=== PATIENT | male | born 1975 | race Caucasian/White ===

== ENCOUNTER → 2017-11-09 | Outpatient (CLI) | payer BC ==
[2017-11-09 13:01] LABS: BASO # 0.1 10^3/uL (0.0-0.2); BASO % 1.4 % (0.0-1.0); EOS # 0.2 10^3/uL (0.0-0.50); HEMATOCRIT 46.9 % (42.0-52.0); HEMOGLOBIN 15.8 g/dl (13.5-17.5); IMMATURE GRANULOCYTE % 0.5 % (0-3.0); LYMPH # 2.5 10^3/uL (1.5-4.5); LYMPH % 38.3 % (24.0-44.0); MEAN CORPUSCULAR HEMOGLOBIN 28.8 pg (27.0-33.0); MEAN CORPUSCULAR HGB CONC 33.7 g/dl (32.0-36.5); MEAN CORPUSCULAR VOLUME 85.4 fl (80.0-96.0); MONO # 0.8 10^3/uL (0.0-0.8); NEUTROPHILS # 2.9 10^3/uL (1.8-7.7); NEUTROPHILS % 44.8 % (36.0-66.0); PLATELET COUNT, AUTOMATED 162 10^3/uL (150-450); RED BLOOD COUNT 5.49 10^6/uL (4.30-6.10); RED CELL DISTRIBUTION WIDTH 13.1 % (11.5-14.5); WHITE BLOOD COUNT 6.4 10^3/uL (4.0-10.0)
[2017-11-09 13:36] LABS: ALBUMIN 4.2 GM/DL (3.2-5.2); ALBUMIN/GLOBULIN RATIO 1.31 (1.00-1.93); ALKALINE PHOSPHATASE 49 U/L (45-117); ALT/SGPT 51 U/L (12-78); ANION GAP 6 MEQ/L (8-16); AST/SGOT 26 U/L (7-37); BILIRUBIN,TOTAL 0.7 MG/DL (0.2-1.0); BLOOD UREA NITROGEN 20 MG/DL (7-18); CALCIUM LEVEL 9.3 MG/DL (8.5-10.1); CARBON DIOXIDE LEVEL 28 MEQ/L (21-32); CHLORIDE LEVEL 106 MEQ/L (98-107); CHOLESTEROL LEVEL 183 MG/DL (<200); CHOLESTEROL RISK RATIO 4.066 (<5); CREATININE FOR GFR 1.12 MG/DL (0.70-1.30); GLOMERULAR FILTRATION RATE > 60.0 (>60); GLUCOSE, FASTING 98 MG/DL (70-100); HDL CHOLESTEROL 45 MG/DL (>40); LDL CHOLESTEROL 116.6 MG/DL (<100); NON-HDL-C 138 MG/DL; POTASSIUM SERUM 4.5 MEQ/L (3.5-5.1); SODIUM LEVEL 140 MEQ/L (136-145); TOTAL PROTEIN 7.4 GM/DL (6.4-8.2); TRIGLYCERIDES LEVEL 107 MG/DL (<150)
== END ==
LOC: M WUC 09:04
DX: I10 Essential (primary) hypertension (principal)
CPT/HCPCS: 80053

== ENCOUNTER → 2018-09-10 | Outpatient (CLI) | payer BC ==
[2018-09-10 17:59] LABS: MAU/CREAT RATIO 3.5 MCG/MG (0.0-30.0)
[2018-09-10 18:06] LABS: ALT/SGPT 39 U/L (12-78); BILIRUBIN,TOTAL 0.5 MG/DL (0.2-1.0); BLOOD UREA NITROGEN 16 MG/DL (7-18); CALCIUM LEVEL 8.9 MG/DL (8.5-10.1); CARBON DIOXIDE LEVEL 27 MEQ/L (21-32); CHLORIDE LEVEL 104 MEQ/L (98-107); CHOLESTEROL LEVEL 194 MG/DL (<200); CREATININE FOR GFR 1.15 MG/DL (0.70-1.30); GLOMERULAR FILTRATION RATE > 60.0 (>60); GLUCOSE, FASTING 88 MG/DL (70-100); HDL CHOLESTEROL 53 MG/DL (>40); LDL CHOLESTEROL 118 MG/DL (<100); NON-HDL-C 141 MG/DL; POTASSIUM SERUM 4.7 MEQ/L (3.5-5.1); SODIUM LEVEL 139 MEQ/L (136-145); THYROID STIMULATING HORMONE 0.764 uIU/ML (0.358-3.740); TOTAL PROTEIN 7.2 GM/DL (6.4-8.2); TRIGLYCERIDES LEVEL 114 MG/DL (<150)
== END ==
LOC: M WUC 11:05
PROVIDERS: ATTEND Nurse Practitioner Family
DX: Z00.00 Encounter for general adult medical examination without abnormal findings (principal); I10 Essential (primary) hypertension; Z13.220 Encounter for screening for lipoid disorders

== ENCOUNTER → 2019-03-22 | Outpatient (REF) | payer BC ==
[2019-03-22 10:23] LABS: BLOOD UREA NITROGEN 15 MG/DL (7-18); CALCIUM LEVEL 9.7 MG/DL (8.5-10.1); CARBON DIOXIDE LEVEL 28 MEQ/L (21-32); CHLORIDE LEVEL 105 MEQ/L (98-107); CREATININE FOR GFR 1.12 MG/DL (0.70-1.30); GLOMERULAR FILTRATION RATE > 60.0 (>60); GLUCOSE, FASTING 132 MG/DL (70-100); POTASSIUM SERUM 4.2 MEQ/L (3.5-5.1); SODIUM LEVEL 138 MEQ/L (136-145)
== END ==
LOC: M SFHCPLAZ 07:51
PROVIDERS: ATTEND Nurse Practitioner Family
DX: J30.9 Allergic rhinitis, unspecified (principal)

== ENCOUNTER 2021-05-31 00:21 | Emergency (ER) | payer BC ==
[~2021-05-31] VITALS: Ht 172.7 cm; Wt 85.0 kg
[2021-05-31 00:21] VITALS: BP 131/64
--- OUTSIDE RECORDS SUMMARY | 2021-05-31 00:26 | CCD ---
Author Author [facility] Organization [facility] Address Unknown Phone Unavailable Support Name Relationship Address Phone [employer] [place] [address] STATURE Next Of Kin [address] [place] [address] XIOMARA DE LA FUENTE Next Of Kin [address] [place] [address] XIOMARA DE LA FUENTE ECON Unknown Unavailable Re-disclosure Warning The records that you are about to access may contain information from federally-assisted alcohol or drug abuse programs. If such information is present, then the following federally mandated warning applies: This information has been disclosed to you from records protected by federal confidentiality rules (42 CFR part 2). The federal rules prohibit you from making any further disclosure of this information unless further disclosure is expressly permitted by the written consent of the person to whom it pertains or as otherwise permitted by 42 CFR part 2. A general authorization for the release of medical or other information is NOT sufficient for this purpose. The Federal rules restrict any use of the information to criminally investigate or prosecute any alcohol or drug abuse patient.The records that you are about to access may contain highly sensitive health information, the redisclosure of which is protected by Article 27-F of the [facility] Public Health law. If you continue you may have access to information: Regarding HIV / AIDS; Provided by facilities licensed or operated by the [facility] Office of Mental Health; or Provided by the [facility] Office for People With Developmental Disabilities. If such information is present, then the following [facility] mandated warning applies: This information has been disclosed to you from confidential records which are protected by state law. State law prohibits you from making any further disclosure of this information without the specific written consent of the person to whom it pertains, or as otherwise permitted by law. Any unauthorized further disclosure in violation of state law may result in a fine or [place] [facility] sentence or both. A general authorization for the release of medical or other information is NOT sufficient authorization for further disc losure. Family History Family Member Name Family Member Gender Family Member Status Date o f Status Description Data Source(s) Unknown Unknown Problem [facility] ([facility]) Unknown Unknown Problem [facility] ([facility]) pgm Immunizations Vaccine Date Status Description Data Source(s) COVID-19 VACCINE Moderna 11/24/2020 12:00:00 AM EDT completed [place] Vaccine Series Complete: YESThis Data wa s Submitted to [facility]. COVID-19 VACCINE Moderna 10/25/2020 12:00:00 AM EDT completed [place] Vaccine Series Complete: NOThis Data was Submitted to [facility] [employer]. Medications No Information Insurance Providers Payer name Policy type / Coverage type Policy ID Covered alliance party ID Covered alliance party's relationship to viramontes Policy [place] Plan Information [employer] [place] P[place]/307 [id number] SP [id number] [employer] [place]/307 [id number] SP [id number] ANSI-Not a Secondary Insurance [id number] BCBS/[employer] Commercial [id number] Self [id number] BCBS/Blue Card Commercial [id number] Self [employer] [place] PPO 302/307 [id number] SP [id number] ANSI-Not a Secondary Insurance [id number] Problems, Conditions, and Diagnoses No Information Surgeries/Procedures No Information Results No Information Social History No Information
--- OUTSIDE RECORDS SUMMARY | 2021-05-31 00:40 | CCD ---
Author Author [facility] Organization [facility] Address Unknown Phone Unavailable Support Name Relationship Address Phone [employer] Next [place] [address] STATURE Next Of Kin [address] [place] [address] XIOMARA DE LA FUENTE Next Of Kin [address] [place] [address] XIOMARA DE LA FUENTE ECON Unknown Unavailable [...] is protected by Article 27-F of the [facility] Public Health law. If you continue you may have access to information: Regarding HIV / AIDS; Provided by facilities licensed or operated by the [facility] Office of Mental Health; or Provided by the [facility] Office for People With Developmental Disabilities. If such information is present, then the following [facility] mandated warning applies: This information has been [...] law may result in a fine or correction sentence or both. A general authorization for [...] Complete: YESThis Data wa s Submitted to [facility] [employer]. COVID-19 VACCINE Moderna 10/25/2020 12:00:00 AM EDT completed [place] Vaccine Series Complete: NOThis Data was Submitted to [facility] [employer] [employer]. Medications No Information Insurance Providers Payer name Policy type / Coverage type Policy ID Covered constitution party ID Covered constitution party's relationship to viramontes Policy [place] Plan Information [employer] [place] P[place] 302/307 [id number] SP [id number] [employer] [place] PPO 302/307 [id number] SP [id number] ANSI-Not a Secondary Insurance [id number] [employer] Commercial [id number] Self [id number] BCBS/Blue Card Commercial [id number] Self [employer] [place] P[place] 302/307 [id number] SP [id number] ANSI-Not a Secondary Insurance [id number] Problems, Conditions, and Diagnoses No Information Surgeries/Procedures No Information Results No Information Social History No Information
[2021-06-01] MEDS ORDERED: LISI40TA4 PO (14:01)
[2021-06-01] MEDS ORDERED: VITMTA PO (15:41)
[2021-06-01] MEDS ORDERED: ADVI200C18 PO (15:41)
== END 2021-05-31 00:24 | disposition left against medical advice (07) ==
LOC: M ED 00:21
DX: Z53.21 Procedure and treatment not carried out due to patient leaving prior to being seen by health care provider (principal)

== ENCOUNTER 2021-06-01 13:49 | Inpatient (IN) | payer BC ==
[~2021-06-01] VITALS: Ht 175.3 cm; Wt 86.2 kg
--- OUTSIDE RECORDS SUMMARY | 2021-06-01 13:55 | CCD ---
Author Author [facility] Organization [facility] Address Unknown Phone Unavailable Care Team Providers Care Rehab Services Aide Name Role Phone FEDE, Kelley STANFORD PA Unavailable Unavailable LETTIERE, A HIEN PA Unavailable Unavailable LETTIERE, A HIEN PA Unavailable Unavailable LETTIERE, A HIEN PA Unavailable Unavailable LETTIERE, A HIEN PA Unavailable Unavailable LETTIERE, A HIEN PA Unavailable Unavailable LETTIERE, A HIEN PA Unavailable Unavailable LETTIERE, A HIEN PA Unavailable Unavailable LETTIERE, A HIEN PA Unavailable Unavailable LETTIERE, A HIEN PA Unavailable Unavailable LETTIERE, A HIEN PA Unavailable Unavailable LETTIERE, A HIEN PA Unavailable Unavailable LETTIERE, A HIEN PA Unavailable Unavailable LETTIERE, A HIEN PA Unavailable Unavailable LETTIERE, A HIEN PA Unavailable Unavailable LETTIERE, A HIEN PA Unavailable Unavailable LETTIERE, A HIEN PA Unavailable Unavailable LETTIERE, A HIEN PA Unavailable Unavailable LETTIERE, A HIEN PA Unavailable Unavailable LETTIERE, A HIEN PA Unavailable Unavailable LETTIERE, A HIEN PA Unavailable Unavailable LETTIERE, A HIEN PA Unavailable Unavailable LETTIERE, A HIEN PA Unavailable Unavailable LETTIERE, A HIEN PA Unavailable Unavailable LETTIERE, A HIEN PA Unavailable Unavailable LETTIERE, A HIEN PA Unavailable Unavailable LETTIERE, A HIEN PA Unavailable Unavailable LETTIERE, A HIEN PA Unavailable Unavailable LETTIERE, A HIEN PA Unavailable Unavailable LETTIERE, A HIEN PA Unavailable Unavailable LETTIERE, A HIEN PA Unavailable Unavailable Re-disclosure Warning The records that you [...] is protected by Article 27-F of the [facility] Public Health law. If you continue you may have access to information: Regarding HIV / AIDS; Provided by facilities licensed or operated by the [facility] Office of Mental Health; or Provided by the [facility] Office for People With Developmental Disabilities. If such information is present, then the following [facility] mandated warning applies: This information has been [...] law may result in a fine or long term sentence or both. A general authorization for the release of medical or other information is NOT sufficient authorization for further disc losure. Family History Family Member Name Family Member Gender Family Member Status Date o f Status Description Data Source(s) Unknown Unknown Problem [facility] ([facility]) Unknown Unknown Problem [facility] ([facility]) pgm Encounters Encounter Providers Location Date Indications Data Source(s ) Outpatient Attender: HIEN toussaint 06/01/2021 08:15:00 AM EDT [facility] ([facility]) Immunizations Vaccine Date Status Description Data Source(s) COVID-19 VACCINE Moderna 11/24/2020 12:00:00 AM EDT completed [place] Vaccine Series Complete: YESThis Data wa s Submitted to [facility] [employer]. COVID-19 VACCINE Moderna 10/25/2020 12:00:00 AM EDT completed [place] Vaccine Series Complete: NOThis Data was Submitted to [facility] [employer]. Medications No Information Insurance Providers Payer name Policy type / Coverage type Policy ID Covered green party ID Covered green party's relationship to viramontes Policy [place] Plan Information [employer] [place] P[place] 302/307 [id number] SP [id number] [employer] [place] 302/307 [id number] SP [id number] ANSI-Not a Secondary Insurance [id number] ANSI-Not a Secondary Insurance [id number] BC[employer] Commercial [id number] Self [id number] BCBS/Blue Card Commercial [id number] Self [employer] [place] P[place] 302/307 [id number] SP [id number] [employer] [place] O 302/307 [id number] SP [id number] Problems, Conditions, and Diagnoses No Information Surgeries/Procedures Procedure Description Date Indications Data Source(s) OFFICE OUTPATIENT NEW 30 MINUTES 06/01/2021 12:00:00 A M EDT [facility] ([facility]) Results ID Date Data Source [id number] 06/01/2021 09:56:00 AM EDT [facility] ([facility]) Name Value Range Interpretation Code Description Data Zora rce(s) Supporting Document(s) Bacteria identified in Urine by Culture Laboratory test result [facility] ([facility]) Procedure Social History Code Duration Value Status Description Data Source(s ) Smoking 06/01/2021 12:00:00 AM EDT Patient is a former smoker completed Patient is a former smoker [facility] ([facility]) Vital Signs ID Date Data Source UNK Name Value Range Interpretation Code Description Data Source(s) Heart rate 102 /min 102 /min [facility] ([facility]) Body temperature 98.7 [degF] 98.7 [degF] [facility] ([facility], [facility]) Respiratory rate 14 /min 14 /min [facility] ( [facility], [facility]) Oxygen saturation in Arterial blood by Pulse oximetry 98 % 98 % [facility] ([facility], [facility]) Body weight 187.00 [lb_av] 187.00 [lb_av] [facility] ([facility], [facility]) Systolic blood pressure 122 mm[Hg] 122 mm[Hg] [facility] ([facility], [facility]) Diastolic blood pressure 79 mm[Hg] 79 mm[Hg] [facility] ([facility]) Body height 69 [in_i] 69 [in_i] [facility] ([facility]) 5'9" Body mass index (BMI) [Ratio] 27.6 kg/m2 27.6 k g/m2 [facility] ([facility])
[2021-06-01] MEDS ORDERED: LISI40TA4 PO (14:01)
[2021-06-01] MEDS ORDERED: PIPERACILLIN/TAZOBACTAM SOD 3.375 GM in D5W MINI-BAG PLUS 50 ML IV ONE (14:35)
[2021-06-01] MEDS ORDERED: NS 1,000 ML IV ONE (14:35)
[2021-06-01] MEDS ORDERED: ACETAMINOPHEN 500 MG TAB PO ONE (15:05)
[2021-06-01] MEDS ORDERED: MORPHINE 2 MG/ML 1ML VIAL (J2270) IV ONE (15:05)
[2021-06-01 15:28] LABS: RSV AMPLIFICATION NEGATIVE (NEGATIVE)
[2021-06-01] MEDS ORDERED: VITMTA PO (15:41)
[2021-06-01] MEDS ORDERED: ADVI200C18 PO (15:41)
[2021-06-01] MEDS ORDERED: HOME MED LIST COMPLETE! XX SCH (15:45)
--- OUTSIDE RECORDS SUMMARY | 2021-06-01 15:52 | CCD ---
Author Author [facility] Organization [facility] Address Unknown Phone Unavailable Care Team Providers Care Creative Services Specialist Name Role Phone FEDE, Kelley CABRALES Unavailable Unavailable LETTIERE, Kelley STANFORD PA Unavailable Unavailable LETTIERE, Kelley STANFORD PA Unavailable Unavailable LETTIERE, Kelley STANFORD PA Unavailable Unavailable LETTIERE, Kelley STANFORD PA Unavailable Unavailable LETTIERE, Kelley STANFORD PA Unavailable Unavailable LETTIERE, Kelley STANFORD PA Unavailable Unavailable LETTIERE, Kelley STANFORD PA Unavailable Unavailable LETTIERE, Kelley STANFORD PA Unavailable Unavailable LETTIERE, Kelley STANFORD PA Unavailable Unavailable LETTIERE, Kelley STANFORD PA Unavailable Unavailable LETTIERE, A HIEN PA Unavailable Unavailable LETTIERE, A HIEN PA Unavailable Unavailable LETTIERE, Kelley STANFORD PA Unavailable Unavailable LETTIERE, Kelley STANFORD PA Unavailable Unavailable LETTIERE, A HEIN PA Unavailable Unavailable LETTIERE, A HIEN PA [...] is protected by Article 27-F of the [facility] Public Health law. If you continue you may have access to information: Regarding HIV / AIDS; Provided by facilities licensed or operated by the [facility] Office of Mental Health; or Provided by the [facility] Office for People With Developmental Disabilities. If such information is present, then the following [facility] mandated warning applies: This information has [...] law may result in a fine or fdc sentence or both. A general authorization for the release of medical or other information is NOT sufficient authorization for further disc losure. Family History Family Member Name Family Member Gender Family Member Status Date o f Status Description Data Source(s) Unknown Unknown Problem [facility] ([facility]) Unknown Unknown Problem [facility] pgm Encounters Encounter Providers Location Date Indications Data Source(s ) Outpatient Attender: HIEN toussaint 06/01/2021 08:15:00 AM EDT [facility] ([facility] [place] [address] [address] 05/31/2021 12:00:00 AM EDT eCW1 ([facility]) Unknown [address] [address] 05/27/2021 12:00:00 AM EDT eCW1 ([facility]) Immunizations Vaccine Date Status Description Data Source(s) COVID-19 VACCINE Moderna 11/24/2020 12:00:00 AM EDT completed NYSIIS Vaccine Series Complete: YESThis Data wa s Submitted to [facility] Via [employer]. COVID-19 VACCINE Moderna 10/25/2020 12:00:00 AM EDT completed [facility]SIIS Vaccine Series Complete: NOThis Data was Submitted to [facility] Via [employer]. Medications No Information Insurance Providers Payer name Policy type / Coverage type Policy ID Covered democrat ID Covered democrat's relationship to viramontes Policy [place] Plan Information [employer] [place]/307 [id number] SP [id number] [place]/307 [id number] SP [id number] ANSI-Not a Secondary Insurance [id number] ANSI-Not a Secondary Insurance [id number] BCBS/[employer] Commercial [id number] Self [id number] BCBS/Blue Card Commercial [id number] Self [place] P[place] 302/307 [id number] SP [id number] [employer] [place] P[place] 302/307 [id number] SP [id number] Problems, Conditions, and Diagnoses No Information Surgeries/Procedures Procedure Description Date Indications Data Source(s) OFFICE OUTPATIENT NEW 30 MINUTES 06/01/2021 12:00:00 A M ED[facility], [facility]) Results ID Date Data Source [id number] 06/01/2021 09:56:00 AM EDT MED[facility] ([facility]) Name Value Range Interpretation Code Description Data Zora rce(s) Supporting Document(s) Bacteria identified in Urine by Culture Laboratory test result [facility] ([facility]) ID Date Data Source [id number] 06/01/2021 09:40:00 AM EDT [facility] ([facility]) Name Value Range Interpretation Code Description Data Zora rce(s) Supporting Document(s) Platelets [#/volume] in Blood by Estimate Laboratory test result MED[facility] ([facility]) see progress note: Patient sent over to ED for further evaluation. ID Date Data Source [id number] 06/01/2021 09:40:00 AM EDT [facility] ([facility]) Name Value Range Interpretation Code Description Data Zora rce(s) Supporting Document(s) Bands 2 % [facility] ([facility]) see progress note: Patient sent over to ED for further evaluation. Neutrophils 85 % 28-66 [facility] ([facility]) see progress note: Patient sent over to ED for further evaluation. Lymphocytes 8 % 16-44 [facility] ([facility]) see progress note: Patient sent over to ED for further evaluation. Monocytes 5 % 0-5 [facility] ([facility]) see progress note: Patient sent over to ED for further evaluation. RBC Morphology Laboratory test result MED[facility] ([facility]) see progress note: Patient sent over to ED for further evaluation. ID Date Data Source [id number] 06/01/2021 09:40:00 AM EDT MED[facility] ([facility]) Name Value Range Interpretation Code Description Data Zora rce(s) Supporting Document(s) Lipoprotein lipase [Enzymatic activity/volume] in Serum or Plasm a 76 U/L 73-393 [facility] ([facility]) see progress note: Patient sent over to ED for further evaluation. Amylase [Enzymatic activity/volume] in Serum or Plasma 36 U/L 25- 115 [facility] ([facility]) see progress note: Patient sent over to ED for further evaluation. ID Date Data Source [id number] 06/01/2021 09:40:00 AM EDT MED[facility] ([facility]) Name Value Range Interpretation Code Description Data Zora rce(s) Supporting Document(s) Glucose, Fasting 114 mg/dL 70-100 [facility] ([facility]) see progress note: Patient sent over to ED for further evaluation. Glomerular Filtration Rate Laboratory test result MED[facility] ([facility]) see progress note: Patient sent over to ED for further evaluation. Creatinine For GFR 1.02 mg/dL 0.70-1.30 [facility] ([facility]) see progress note: Patient sent over to ED for further evaluation. Blood Urea Nitrogen 12 mg/dL 7-18 [facility] ([facility]) see progress note: Patient sent over to ED for further evaluation. Potassium Serum 3.7 meq/L 3.5-5.1 MED[facility] ([facility]) see progress note: Patient sent over to ED for further evaluation. Chloride Level 99 meq/L 98-107 [facility] ([facility]) see progress note: Patient sent over to ED for further evaluation. Sodium Level 133 meq/L 136-145 [facility] ([facility]) see progress note: Patient sent over to ED for further evaluation. Anion Gap 5 meq/L 8-16 [facility] ([facility]) see progress note: Patient sent over to ED for further evaluation. Carbon Dioxide Level 29 meq/L 21-32 [facility] ([facility]) see progress note: Patient sent over to ED for further evaluation. Alt/SGPT 100 U/L 12-78 [facility] ([facility]) see progress note: Patient sent over to ED for further evaluation. Ast/Sgot 41 U/L 7-37 [facility] ([facility]) see progress note: Patient sent over to ED for further evaluation. Calcium Level 8.8 mg/dL 8.5-10.1 [facility] ([facility]) see progress note: Patient sent over to ED for further evaluation. Alkaline Phosphatase 134 U/L 45-117 MED[facility] ([facility]) see progress note: Patient sent over to ED for further evaluation. Bilirubin,Total 0.7 mg/dL 0.2-1.0 [facility] ([facility]) see progress note: Patient sent over to ED for further evaluation. Total Protein 7.0 GM/DL 6.4-8.2 [facility] ([facility]) see progress note: Patient sent over to ED for further evaluation. Albumin/Globulin Ratio 0.7 [facility] ([facility]) see progress note: Patient sent over to ED for further evaluation. Albumin 2.8 GM/DL 3.2-5.2 [facility] ([facility]) see progress note: Patient sent over to ED for further evaluation. ID Date Data Source [id number] 06/01/2021 09:40:00 AM EDT MED[facility] ([facility]) Name Value Range Interpretation Code Description Data Zora rce(s) Supporting Document(s) White Blood Count 24.9 10 4.0-10.0 MED[facility] ([facility]) see progress note: Patient sent over to ED for further evaluation. Red Blood Count 4.62 10 4.30-6.10 [facility] ([facility]) see progress note: Patient sent over to ED for further evaluation. Hemoglobin 13.1 g/dL 13.5-17.5 MED[facility] ([facility]) see progress note: Patient sent over to ED for further evaluation. Mean Corpuscular Volume 86.4 fl 80.0-96.0 M EDENT ([facility]) see progress note: Patient sent over to ED for further evaluation. Mean Corpuscular Hemoglobin 28.4 pg 27.0-33.0 [facility] ([facility]) see progress note: Patient sent over to ED for further evaluation. Hematocrit 39.9 % 42.0-52.0 [facility] ([facility]) see progress note: Patient sent over to ED for further evaluation. Mean Corpuscular HGB Conc 32.8 g/dL 32.0-36.5 [facility] ([facility]) see progress note: Patient sent over to ED for further evaluation. Red Cell Distribution Width 13.8 % 11.5-14.5 [facility] ([facility]) see progress note: Patient sent over to ED for further evaluation. Platelet Count, Automated 310 10 150-450 [facility] see progress note: Patient sent over to ED for further evaluation. Nucleated Red Blood Cell % 0.0 % 0-0 [facility] ([facility]) see progress note: Patient sent over to ED for further evaluation. Procedure Social History Code Duration Value Status Description Data Source(s ) Smoking 06/01/2021 12:00:00 AM EDT Patient is a former smoker completed Patient is a former smoker [facility] ([facility]) Vital Signs ID Date Data Source UNK Name Value Range Interpretation Code Description Data Source(s) Respiratory rate 14 /min 14 /min [facility] ( [facility]) Oxygen saturation in Arterial blood by Pulse oximetry 98 % 98 % [facility] ([facility]) Body height 69 [in_i] 69 [in_i] [facility] ([facility]) 5'9" Body mass index (BMI) [Ratio] 27.6 kg/m2 27.6 k g/m2 [facility] ([facility]) Systolic blood pressure 122 mm[Hg] 122 mm[Hg] [facility] Diastolic blood pressure 79 mm[Hg] 79 mm[Hg] [facility] ([facility]) Heart rate 102 /min 102 /min [facility] ([facility]) Body temperature 98.7 [degF] 98.7 [degF] [facility] ([facility]) Body weight 187.00 [lb_av] 187.00 [lb_av] MEDEN T ([facility])
[2021-06-01] MEDS ORDERED: MORPHINE 2 MG/ML 1ML VIAL (J2270) IV PRN ×2 (19:30→21:25)
[2021-06-01] MEDS ORDERED: PERCOCET 5MG/325MG TAB PO PRN (21:25)
[2021-06-01] MEDS ORDERED: ONDANSETRON 4MG/2ML VIAL IV PRN (21:25)
[2021-06-01] MEDS ORDERED: METOCLOPRAMIDE INJ 10MG/2ML VIAL (J2765 PER 1) IV PRN (21:25)
--- OUTSIDE RECORDS SUMMARY | 2021-06-01 21:46 | CCD ---
Author Author [facility] Organization [facility] Address Unknown Phone Unavailable Care Team Providers Care Poker Prop Player Name Role Phone FEDE, Kelley CABRALES Unavailable [...] A HIEN PA Unavailable Unavailable LETTIERE, A HINE PA Unavailable Unavailable LETTIERE, A HIEN PA [...] is protected by Article 27-F of the [facility] Public Health law. If you continue you may have access to information: Regarding HIV / AIDS; Provided by facilities licensed or operated by the [facility] Office of Mental Health; or Provided by the [facility] Office for People With Developmental Disabilities. If such information is present, then the following [facility] mandated warning applies: This information has [...] law may result in a fine or nursing home sentence or both. A general authorization for the release of medical or other information is NOT sufficient authorization for further disc losure. Family History Family Member Name Family Member Gender Family Member Status Date o f Status Description Data Source(s) Unknown Unknown Problem [facility] ([facility]) Unknown Unknown Problem [facility] pgm Encounters Encounter Providers Location Date Indications Data Source(s ) Outpatient Attender: HIEN toussaint 06/01/2021 08:15:00 AM EDT [facility] ([facility] [place] [address] [place] [address] 05/31/2021 12:00:00 AM EDT eCW1 ([facility]) Unknown [address] [place] [address] 05/27/2021 12:00:00 AM EDT eCW1 ([facility]) Immunizations Vaccine Date Status Description Data Source(s) COVID-19 VACCINE Moderna 11/24/2020 12:00:00 AM EDT completed NYSIIS Vaccine Series Complete: YESThis Data wa s Submitted to [facility] Via [employer]. COVID-19 VACCINE Moderna 10/25/2020 12:00:00 AM EDT completed NYSIIS Vaccine Series Complete: NOThis Data was Submitted to [facility] Via [employer]. Medications No Information Insurance Providers Payer name Policy type / Coverage type Policy ID Covered republican ID Covered republican's relationship to viramontes Policy [place] Plan Information [employer] [place] 302/307 [id number] SP [id number] [employer] [place] 302/307 [id number] SP [id number] ANSI-Not a Secondary Insurance [id number] ANSI-Not a Secondary Insurance [id number] BCBS/[employer] Commercial [id number] Self [id number] BCBS/Blue Card Commercial [id number] Self [employer] [place] PPO 302/307 [id number] SP [id number] [employer] [place] PPO 302/307 [id number] SP [id number] Problems, Conditions, and Diagnoses No Information Surgeries/Procedures Procedure Description Date Indications Data Source(s) OFFICE OUTPATIENT NEW 30 MINUTES 06/01/2021 12:00:00 A M [facility]) Results ID Date Data Source [id number] 06/01/2021 09:56:00 AM EDT MEDENT ([facility]) Name Value Range Interpretation Code Description Data Zora rce(s) Supporting Document(s) Bacteria identified in Urine by Culture Laboratory test result MEDENT ([facility]) ID Date Data Source [id number] 06/01/2021 09:40:00 AM EDT MEDENT ([facility]) Name Value Range Interpretation Code Description Data Zora rce(s) Supporting Document(s) Platelets [#/volume] in Blood by Estimate Laboratory test result MEDENT ([facility]) see progress note: Patient sent over to ED for further evaluation. ID Date Data Source [id number] 06/01/2021 09:40:00 AM EDT MEDENT ([facility]) Name Value Range Interpretation Code Description Data Zora rce(s) Supporting Document(s) Bands 2 % MEDENT ([facility]) see progress note: Patient sent over to ED for further evaluation. Neutrophils 85 % 28-66 [facility] ([facility]) see progress note: Patient sent over to ED for further evaluation. Lymphocytes 8 % 16-44 [facility] ([facility]) see progress note: Patient sent over to ED for further evaluation. Monocytes 5 % 0-5 [facility] ([facility]) see progress note: Patient sent over to ED for further evaluation. RBC Morphology Laboratory test result MED[facility] ([facility]) see progress note: Patient sent over to ED for further evaluation. ID Date Data Source [id number] 06/01/2021 09:40:00 AM EDT MEDENT ([facility]) Name Value Range Interpretation Code Description Data Zora rce(s) Supporting Document(s) Lipoprotein lipase [Enzymatic activity/volume] in Serum or Plasm a 76 U/L 73-393 [facility] ([facility]) see progress note: Patient sent over to ED for further evaluation. Amylase [Enzymatic activity/volume] in Serum or Plasma 36 U/L 25- 115 [facility] ([facility]) see progress note: Patient sent over to ED for further evaluation. ID Date Data Source [id number] 06/01/2021 09:40:00 AM EDT MEDENT ([facility]) Name Value Range Interpretation Code Description Data Zora rce(s) Supporting Document(s) Glucose, Fasting 114 mg/dL 70-100 [facility] ([facility]) see progress note: Patient sent over to ED for further evaluation. Glomerular Filtration Rate Laboratory test result MEDENT ([facility]) see progress note: Patient sent over to ED for further evaluation. Creatinine For GFR 1.02 mg/dL 0.70-1.30 [facility] ([facility]) see progress note: Patient sent over to ED for further evaluation. Blood Urea Nitrogen 12 mg/dL 7-18 [facility] ([facility]) see progress note: Patient sent over to ED for further evaluation. Potassium Serum 3.7 meq/L 3.5-5.1 [facility] ([facility]) see progress note: Patient sent over to ED for further evaluation. Chloride Level 99 meq/L 98-107 [facility] ([facility]) see progress note: Patient sent over to ED for further evaluation. Sodium Level 133 meq/L 136-145 [facility] ([facility]) see progress note: Patient sent over to ED for further evaluation. Anion Gap 5 meq/L 8-16 [facility] ([facility]) see progress note: Patient sent over to ED for further evaluation. Carbon Dioxide Level 29 meq/L 21-32 [facility] ([facility]) see progress note: Patient sent over to ED for further evaluation. Alt/SGPT 100 U/L 12-78 [facility] ([facility]) see progress note: Patient sent over to ED for further evaluation. Ast/Sgot 41 U/L 7-37 [facility] ([facility]) see progress note: Patient sent over to ED for further evaluation. Calcium Level 8.8 mg/dL 8.5-10.1 [facility] ([facility]) see progress note: Patient sent over to ED for further evaluation. Alkaline Phosphatase 134 U/L 45-117 [facility] ([facility]) see progress note: Patient sent over to ED for further evaluation. Bilirubin,Total 0.7 mg/dL 0.2-1.0 [facility] ([facility]) see progress note: Patient sent over to ED for further evaluation. Total Protein 7.0 GM/DL 6.4-8.2 [facility] ([facility]) see progress note: Patient sent over to ED for further evaluation. Albumin/Globulin Ratio 0.7 [facility] ([facility]) see progress note: Patient sent over to ED for further evaluation. Albumin 2.8 GM/DL 3.2-5.2 [facility] ([facility]) see progress note: Patient sent over to ED for further evaluation. ID Date Data Source [id number] 06/01/2021 09:40:00 AM EDT MED[facility] ([facility]) Name Value Range Interpretation Code Description Data Zora rce(s) Supporting Document(s) White Blood Count 24.9 10 4.0-10.0 [facility] ([facility]) see progress note: Patient sent over to ED for further evaluation. Red Blood Count 4.62 10 4.30-6.10 [facility] ([facility]) see progress note: Patient sent over to ED for further evaluation. Hemoglobin 13.1 g/dL 13.5-17.5 [facility] ([facility]) see progress note: Patient sent over to ED for further evaluation. Mean Corpuscular Volume 86.4 fl 80.0-96.0 M EDENT ([facility]) see progress note: Patient sent over to ED for further evaluation. Mean Corpuscular Hemoglobin 28.4 pg 27.0-33.0 [facility] ([facility]) see progress note: Patient sent over to ED for further evaluation. Hematocrit 39.9 % 42.0-52.0 [facility] ([facility]) see progress note: Patient sent over to ED for further evaluation. Mean Corpuscular HGB Conc 32.8 g/dL 32.0-36.5 [facility] ([facility]) see progress note: Patient sent over to ED for further evaluation. Red Cell Distribution Width 13.8 % 11.5-14.5 [facility] ([facility]) see progress note: Patient sent over to ED for further evaluation. Platelet Count, Automated 310 10 150-450 [facility]) see progress note: Patient sent over to ED for further evaluation. Nucleated Red Blood Cell % 0.0 % 0-0 [facility] ([facility]) see progress note: Patient sent over to ED for further evaluation. Procedure Social History Code Duration Value Status Description Data Source(s ) Smoking 06/01/2021 12:00:00 AM EDT Patient is a former smoker completed Patient is a former smoker [facility] ([facility]) Vital Signs ID Date Data Source UNK Name Value Range Interpretation Code Description Data Source(s) Respiratory rate 14 /min 14 /min [facility] ( [facility]) Oxygen saturation in Arterial blood by Pulse oximetry 98 % 98 % [facility] ([facility]) Body height 69 [in_i] 69 [in_i] [facility] ([facility]) 5'9" Body mass index (BMI) [Ratio] 27.6 kg/m2 27.6 k g/m2 [facility] ([facility]) Systolic blood pressure 122 mm[Hg] 122 mm[facility]Hg] [facility] Body temperature 98.7 [degF] 98.7 [degF] [facility] ([facility]) Body weight 187.00 [lb_av] 187.00 [facility]lb_av] [facility] Diastolic blood pressure 79 mm[Hg] 79 mm[Hg] [facility] ([facility]) Heart rate 102 /min 102 /min [facility] ([facility])
[2021-06-01] MEDS: KCL 20MEQ IN D5/0.45NS 1000ML 1,000 ML IV SCH (21:59)
[2021-06-01] MEDS: PIPERACILLIN/TAZOBACTAM SOD 3.375 GM in D5W MINI-BAG PLUS 50 ML IV SCH (22:00)
[2021-06-02] VITALS: BP 113/64
[2021-06-02] MEDS: ACETAMINOPHEN TAB 650MG DOSE (2X325MG) PO PRN ×4 (00:18→21:28)
[2021-06-02] MEDS: PIPERACILLIN/TAZOBACTAM SOD 3.375 GM in D5W MINI-BAG PLUS 50 ML IV SCH ×4 (04:19→21:27)
[2021-06-02] MEDS: KCL 20MEQ IN D5/0.45NS 1000ML 1,000 ML IV SCH ×3 (05:21→21:27)
[2021-06-02 06:00] VITALS: BP 115/64
[2021-06-02 06:47] LABS: BASO # 0.1 10^3/uL (0.0-0.2); BASO % 0.3 % (0.0-1.0); EOS % 0.1 % (0.0-3.0); HEMATOCRIT 35.3 % (42.0-52.0); HEMOGLOBIN 11.7 g/dl (13.5-17.5); LYMPH # 1.1 10^3/uL (1.5-5.0); LYMPH % 5.2 % (24.0-44.0); MEAN CORPUSCULAR HEMOGLOBIN 28.4 pg (27.0-33.0); MEAN CORPUSCULAR HGB CONC 33.1 g/dl (32.0-36.5); MEAN CORPUSCULAR VOLUME 85.7 fl (80.0-96.0); MONO # 2.3 10^3/uL (0.0-0.8); MONO % 11.1 % (2.0-8.0); NEUTROPHILS # 16.6 10^3/uL (1.5-8.5); NEUTROPHILS % 82.2 % (36.0-66.0); PLATELET COUNT, AUTOMATED 251 10^3/uL (150-450); RED BLOOD COUNT 4.12 10^6/uL (4.30-6.10); WHITE BLOOD COUNT 20.2 10^3/uL (4.0-10.0)
[2021-06-02 06:58] LABS: INR 1.24; PROTHROMBIN TIME 16.1 SECONDS (12.7-14.5)
[2021-06-02 07:12] LABS: BLOOD UREA NITROGEN 6 MG/DL (7-18); CALCIUM LEVEL 8.2 MG/DL (8.5-10.1); CARBON DIOXIDE LEVEL 27 MEQ/L (21-32); CHLORIDE LEVEL 101 MEQ/L (98-107); CREATININE FOR GFR 0.93 MG/DL (0.70-1.30); GLOMERULAR FILTRATION RATE > 60.0 (>60); GLUCOSE, FASTING 129 MG/DL (70-100); SODIUM LEVEL 135 MEQ/L (136-145)
--- NOTE | 2021-06-02 08:41 | IPNPDOC ---
Text Note Date of Service The patient was seen on 06/02/21. NOTE General surgery. Dr. Urrutia The patient is a 45-year-old male admitted with acute appendicitis/abscess. Plan is for CT-guided percutaneous drain placement later this morning. The patient is resting in bed, currently states pain is controlled. States felt achy through the night. Had 2 episodes of diarrhea overnight. Temperature 97.9, T-max 101.9 Heart rate 82, respiratory rate 18, blood pressure 115/64, 96% room air Awake and alert, resting comfortably in bed, appears in no acute distress when I entered the room. Lungs clear to auscultation S1-S2 regular rate rhythm Abdomen tender in the right lower quadrant, the patient states about the same since admission. Mild guarding. WBC 20.2, hemoglobin 11.7. Assessment/plan Acute appendicitis with abscess The patient is reviewed as per Dr. Urrutia. Continue with IV Zosyn. IV fluids 125 cc/h. Plan for CT-guided drain placement later today as per interventional radiology. VS,Fishbone, I+O VS, Fishbone, I+O Laboratory Tests 06/02/21 06:14 Vital Signs Date Time Temp Pulse Resp B/P (MAP) Pulse Ox O2 Delivery O2 Flow Rate FiO2 06/02/21 06:00 97.9 82 18 115/64 (81) 96 Room Air I&O- Last 24 Hours up to 6 AM 06/02/21 05:59 Intake Total 225 ml Balance 225 ml Junie Miller Jun 02, 2021 08:41
[2021-06-02] MEDS: PANTOPRAZOLE 40MG VIAL (C9113 PER 1) IV SCH (08:57)
--- NOTE | 2021-06-02 09:19 | HPE ---
HISTORY AND PHYSICAL DATE OF ADMISSION: 06/01/2021 ADMITTING DIAGNOSIS: Appendicitis with abscess HISTORY OF PRESENT ILLNESS: The patient is a 45-year-old man who reports that he has bene ill for about a week. He reports that the previous Monday he had felt constipated. He tried some laxatives and ultimately did have a bowel movement but did not feel particularly better. He reports that his appetite has been off. He developed some significant pain in the right lower quadrant which worsened over time. He thinks his urine output has been decreased but his intake is also decreased. He presented to an urgent care center where he was sent for a CT scan. The CT scan was done at [facility] at approximately 11 o'clock in the morning on the 01 of June and this showed a large right lower quadrant abscess likely representing a perforated appendicitis with a walled-off abscess. He was referred to the emergency department and I was subsequently contacted. In the emergency department, he received a dose of Zosyn. I was in the operating room with a case and saw him when that was completed. ALLERGIES: The patient denies any known medication allergies. MEDICATIONS: The patient reports that he normally takes: - lisinopril 40 mg p.o. daily - multivitamin daily - ibuprofen as needed for discomfort. MEDICAL HISTORY: Significant for his hypertension. He denies any history of other cardiac disease and no other active medical problems. SURGICAL HISTORY: He had an open reduction, internal fixation of a right ankle fracture some years ago. 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 He denies any tobacco use. He denies any use of recreational drugs. FAMILY HISTORY: Noncontributory. REVIEW OF SYSTEMS: Shows no history of seizure, stroke or severe headache. He denies any chest pain or palpitations. He has no cough, wheezing or sputum production. As noted, he has had loss of appetite with decreased bowel output. He has not had any vomiting but has been nauseous at times. He denies any definite fevers or rigors. He denies any melena or hematochezia. There is no new bone or joint issues. He has no history of deep vein thrombosis (DVT) or pulmonary embolus. PHYSICAL EXAMINATION: The patient is a pleasant man lying quietly on the hospital stretcher. He is somewhat apprehensive about the possibility of surgery. His vital signs in the emergency department showed temperature in the afternoon of 101.9, which was down to 99.6 by the time I saw the patient. His pulse was in the high 80s to low 90s, and his blood pressure is good. The patient is alert, oriented and otherwise cooperative. Skin is warm and dry. Sclerae are anicteric. Neck is supple. Heart exam shows a regular rate and rhythm, and he is not tachycardic. The lungs are clear. The abdomen is perhaps mildly full. He does have some bowel sounds particularly in the upper quadrants. There is some tenderness on palpation in the right lower quadrant fairly diffusely. There is no definite hernia identified. Extremities are without edema, and he has palpable radial and dorsalis pedis pulses. LABORATORY STUDIES: Obtained at the urgent care center earlier today showed a white count of 25,000, hemoglobin 13, hematocrit 30, platelet count of 310,000 and 85% neutrophils, 2% bands and 8% lymphocytes with 5% monocytes. Chemistry profile showed a sodium of 133, potassium 3.7, chloride 99, CO2 of 29, BUN of 12, creatinine 1.0 and a glucose of 114. Liver function tests showed slight elevations of the AST and ALT to 41 and 100 respectively, and the alkaline phosphatase was elevated to 134. Amylase and lipase were normal. SARS Covid testing was negative. CT imaging showed an approximately 8.7 cm maximally, right lower quadrant fluid collection with an air/fluid level and evidence of surrounding inflammation. This appears to abut the cecum and area of the appendix. The radiologist interpreted this as a large right lower quadrant abscess likely representing perforated, walled-off appendicitis. IMPRESSION: Appendicitis with abscess. He reports symptoms that began about a week ago. He was febrile in the emergency department earlier. He has a markedly elevated white blood cell count with a left shift. PLAN: The patient was counseled regarding the CT findings. I counseled him that the recommended approach to dealing with this delayed diagnosis of appendicitis now with a large abscess is to treat him with antibiotics and perform a percutaneous drainage of the abscess. This is preferred to going to the operating room because in the course of surgery now, the abscess contents would be spilled into the abdomen and that would be potentially more of a problem than the percutaneous drainage approach. He will be continued on Zosyn. We will continue him on IV fluid. I will request drainage in the morning, and he will be kept nothing by mouth (NPO) after midnight for this. He will be provided with analgesics as necessary. I described for him the general course of treatment after the percutaneous drainage has been performed. Ultimately, we will need to discuss whether it is warranted to perform an interval appendectomy sometime in the future. The patient had an opportunity to ask questions and desires to proceed with the plan of care as I have outlined it.
[2021-06-02] MEDS ORDERED: LIDOCAINE 1% MDV 20ML VIAL As Ordered ONE (11:06)
[2021-06-02 14:00] VITALS: BP 108/54
--- NOTE | 2021-06-02 15:20 | IPN ---
PROGRESS NOTE DATE: 06/02/2021 HISTORY: Patient was admitted yesterday evening with a 7-9 day history of abdominal pain settling in the right lower quadrant. A CT scan showed a large periappendiceal abscess. He was admitted with a markedly elevated white blood cell count. He was started on Zosyn and had a percutaneous drain placed just shortly ago this morning. Vital signs show that he had a maximum temperature (T-max) yesterday of 101.9 at the time of presentation. He has been afebrile since last evening. His pulse is in the 80s and low 90s, and his blood pressure is good. Intake and output show that he has had 1100 mL of urine output recorded. PHYSICAL EXAMINATION: Patient reports that is discomfort tis still present but perhaps a little less. Palpation shows the abdomen to be soft with some tenderness in the right lower quadrant. Laboratory studies today show a white count of 20,000, which is down from 25,000. His differential count shows 82% neutrophils, 5 lymphocytes, and 11 monocytes but no bands today. Chemistry showed slight elevation of his fasting glucose to 129 this morning, but his BUN and creatinine are normal. He did have coagulations done that showed a PT of 16, INR of 1.2, and a PTT of 34. IMPRESSION: Patient is doing well. He very recently had a drain placed in his large periappendiceal abscess. I reviewed the imaging myself, and this shows virtually complete collapse of the abscess around the drainage catheter. PLAN: He will remain on the Zosyn for now. I did ask for a culture to be sent from his abscess cavity. I will put him back on clear liquids, and if he tolerates these well his diet can be advanced now that the abscess has been drained.
--- NOTE | 2021-06-02 17:26 | REP ---
INDICATION: appendiceal abscess. COMPARISON: None. TECHNIQUE: The procedure was performed under the direct supervision of Dr. Way. The patient has a history of a large right lower quadrant abscess seen on a previous CT scan dated 06/01/2021. The risks and benefits of the procedure were explained to the patient and informed consent was obtained. The right lower quadrant abscess was localized using CT guidance. The skin was prepped and draped in a sterile fashion. 10 mL of 1% lidocaine was used as a local anesthetic. Using CT guidance a 10 Frisian skater APDL catheter was inserted using trocar technique. [address] colored fluid was withdrawn and sent to the lab for analysis. The catheter was affixed to the skin and a sterile dressing was applied. The catheter was connected to a gravity drainage bag. Estimated blood loss: Less than 1 mL. The patient tolerated the procedure well and there were no immediate complications. After the appropriate amount to monitor convalescence the patient was discharged from the department. FINDINGS: Right lower quadrant abscess. IMPRESSION: CT-guided right lower quadrant abscess drainage with catheter placement. <Electronically signed by Mark Nieto > 06/02/21 1717 <Electronically signed by Alok Way > 06/02/21 1726
[2021-06-02 20:00] VITALS: BP 105/56
[2021-06-03] MEDS: PIPERACILLIN/TAZOBACTAM SOD 3.375 GM in D5W MINI-BAG PLUS 50 ML IV SCH ×4 (03:50→22:00)
[2021-06-03] MEDS: ACETAMINOPHEN TAB 650MG DOSE (2X325MG) PO PRN ×4 (05:23→22:01)
[2021-06-03 06:00] VITALS: BP 103/56
[2021-06-03 08:08] LABS: BASO # 0.1 10^3/uL (0.0-0.2); BASO % 0.9 % (0.0-1.0); EOS # 0.1 10^3/uL (0.0-0.5); EOS % 1.1 % (0.0-3.0); HEMATOCRIT 37.5 % (42.0-52.0); HEMOGLOBIN 11.9 g/dl (13.5-17.5); LYMPH # 1.8 10^3/uL (1.5-5.0); LYMPH % 16.5 % (24.0-44.0); MEAN CORPUSCULAR HEMOGLOBIN 27.6 pg (27.0-33.0); MEAN CORPUSCULAR HGB CONC 31.7 g/dl (32.0-36.5); MONO % 9.2 % (2.0-8.0); NEUTROPHILS # 7.5 10^3/uL (1.5-8.5); NEUTROPHILS % 70.1 % (36.0-66.0); PLATELET COUNT, AUTOMATED 294 10^3/uL (150-450); RED BLOOD COUNT 4.31 10^6/uL (4.30-6.10); WHITE BLOOD COUNT 10.7 10^3/uL (4.0-10.0)
[2021-06-03 09:00] VITALS: BP 100/57
[2021-06-03] MEDS: lisinopriL 40 MG TAB PO SCH ×2 (09:00→09:10)
[2021-06-03] MEDS: PANTOPRAZOLE 40MG VIAL (C9113 PER 1) IV SCH (09:10)
[2021-06-03 10:09] VITALS: BP 104/59
--- NOTE | 2021-06-03 12:02 | IPNPDOC ---
Text Note Date of Service The patient was seen on 06/03/21. NOTE General surgery . Dr. Leiva The patient is a 45-year-old male admitted with acute appendicitis/abscess. Status post CT-guided percutaneous drain placement 06/02/2021 The patient is resting in bed, states his abdominal pain is improved. Denies nausea or vomiting. Has been out of bed around the room. Temperature 97.4, T-max 100.7 VSS Awake and alert, resting comfortably in bed, appears in no acute distress when I entered the room. Lungs clear to auscultation S1-S2 regular rate rhythm Abdomen with less tenderness in the right lower quadrant, nondistended, drain in place. WBC 10.7, this is decreased from 20.2 yesterday morning Abscess culture is pending Assessment/plan Acute appendicitis with abscess The patient is reviewed as per Dr. Leiva Status post CT-guided percutaneous drain placement 06/02/2021, 75ml output. Continue with IV Zosyn for now pending abscess culture. Tolerating soft diet. Continue to monitor. Possible discharge 06/04 or 06/05 pending abscess culture results. VS,Fishbone, I+O VS, Fishbone, I+O Laboratory Tests 06/03/21 07:27 Vital Signs Date Time Temp Pulse Resp B/P (MAP) Pulse Ox O2 Delivery O2 Flow Rate FiO2 06/03/21 10:09 97.4 74 18 104/59 (74) 98 Room Air I&O- Last 24 Hours up to 6 AM 06/03/21 05:59 Intake Total 3087 ml Output Total 4005 ml Balance -918 ml Junie Miller Jun 03, 2021 12:02
[2021-06-03 14:00] VITALS: BP 104/60
[2021-06-03 22:00] VITALS: BP 105/64
[2021-06-04] MEDS: PIPERACILLIN/TAZOBACTAM SOD 3.375 GM in D5W MINI-BAG PLUS 50 ML IV SCH ×2 (04:41→10:04)
[2021-06-04] MEDS: ACETAMINOPHEN TAB 650MG DOSE (2X325MG) PO PRN (04:52)
[2021-06-04 06:00] VITALS: BP 109/67
[2021-06-04] MEDS: PANTOPRAZOLE 40MG VIAL (C9113 PER 1) IV SCH (07:44)
[2021-06-04] MEDS: lisinopriL 40 MG TAB PO SCH (07:44)
[2021-06-04] MEDS ORDERED: METR-265 PO (10:01)
[2021-06-04] MEDS ORDERED: AUGM875T28 PO (10:01)
--- NOTE | 2021-06-04 10:26 | DS.PDOC ---
Discharge Summary General Date of Admission Jun 01, 2021 at 21:23 Date of Discharge 06/04/21 Discharge Summary General surgery. Dr. Urrutia PROCEDURES PERFORMED DURING STAY: Status post CT-guided percutaneous drain placement 06/02/2021 ADMITTING DIAGNOSES: Acute appendicitis with abscess Hypertension DISCHARGE DIAGNOSES: Acute appendicitis with abscess Hypertension COMPLICATIONS/CHIEF COMPLAINT: Acute Appendicitis W/ Appendiceal Abscess. HISTORY OF PRESENT ILLNESS: The patient is a 45-year-old male that reported to the hospital 06/01/2021 reporting a 1 week history of feeling constipated, he had tried some laxatives but was not feeling better. He had noticed poor appetite. He began to develop significant pain in the right lower quadrant which was worsening. He presented to urgent care and was sent for CT scan. CT indicated large right lower quadrant abscess likely representing perforated appendicitis with walled off abscess. The patient was referred to the emergency department and was subsequently admitted to General Surgery. HOSPITAL COURSE: The patient was admitted to medical floor. IV Zosyn and IV fluid were initiated. The patient was initially n.p.o. The patient had CT-guided drain placement as per interventional radiology 06/02/2021 at which time abscess culture was requested. Following this the patient noted significant improvement in his right lower quadrant abdominal pain. He has been using some Tylenol for mild discomfort but otherwise has not required any pain medication. He has remained afebrile. Has been tolerating soft diet. Has been ambulatory around the room on the floor. By 06/04/21 he reports he is feeling much better and feels ready for discharge. Abscess culture indicated pansensitive E. coli, the patient has been discharged with course of oral Augmentin/Flagyl x10 days. Subsequently it was discussed with the patient he could discharge home with the drain in place with outpatient follow-up, discharge was arranged for 06/04/2021 DISCHARGE MEDICATIONS: Please see below. ALLERGIES: Please see below. PHYSICAL EXAMINATION ON DISCHARGE: VITAL SIGNS: Please see below. GENERAL: No acute distress, resting comfortably in bed HEENT: MMM CARDIOVASCULAR EXAMINATION: S1-S2 regular rate rhythm RESPIRATORY EXAMINATION: Clear to auscultation ABDOMINAL EXAMINATION: Abdomen soft, nontender, nondistended. Drain in place right lower quadrant EXTREMITIES: No edema LABORATORY DATA: Please see below. No new labs on day of discharge. Abscess culture indicates pansensitive E. coli. IMAGING: CT abdomen/pelvis IMPRESSION: There is a large right lower quadrant abscess which likely represents a perforated than walled-off appendicitis. Critical Findings: Large right lower quadrant abscess consistent with a perforated walled-off appendicitis. The critical information above was relayed directly by me by telephone to Mayo Alarcon on 06/01/2021 at 12:59 pm with readback verification. <Electronically signed by Jai Cagle > 06/01/21 Discharge plan Discharge home with abscess drain in place. ACTIVITY: As tolerated. DIET: Soft diet Continue to keep drain site clean and dry. Dry dressing daily. Can continue with Tylenol as needed for discomfort. Augmentin 875 mg 1 tablet p.o. twice daily x10 days Flagyl 500 mg 1 tablet p.o. every 8 hours x10 days Follow-up with Dr. Urrutia in 1 to 2 weeks. ITEMS TO FOLLOWUP ON ON OUTPATIENT: Abscess drain right lower quadrant DISCHARGE CONDITION: Stable. TIME SPENT ON DISCHARGE: Greater than 30 minutes. Vital Signs/I&Os Vital Signs Date Time Temp Pulse Resp B/P (MAP) Pulse Ox O2 Delivery O2 Flow Rate FiO2 06/04/21 06:00 97.5 65 20 109/67 (81) 97 Room Air I&O- Last 24 Hours up to 6 AM 06/04/21 05:59 Intake Total 2840 ml Output Total 225 ml Balance 2615 ml Microbiology Microbiology 06/02/21 Gram Stain - Final, Resulted 06/02/21 Anaerobic Culture, Resulted Pending 06/02/21 Abscess Culture - Preliminary, Resulted Escherichia Coli Discharge Medications Scheduled Amoxicillin/Potassium Clav (Augmentin 875-125 Tablet) 1 Each Tablet, 1 TAB PO BID Lisinopril (Lisinopril) 40 Mg Tablet, 40 MG PO DAILY, (Reported) Metronidazole (Metronidazole) 500 Mg Tablet, 500 MG PO TID Multivitamins (Thera M Plus Tablet) 1 Each Tablet, 1 TAB PO DAILY, (Reported) Scheduled PRN Ibuprofen (Advil Liqui-Gels) 200 Mg Capsule, 400 MG PO Q6H PRN for PAIN LEVEL 1- 5, (Reported) Allergies Coded Allergies: No Known Allergies (Verified , 02/03/03) Junie Miller Jun 04, 2021 10:26
== END 2021-06-04 11:30 | disposition home or self-care (01) | DRG 225 ==
LOC: M ED 13:49 → M ED INP 21:23 → ENRESERV 23:30 → M MS5PR 06-02 00:03
PROVIDERS: ADMIT Surgery; ATTEND Surgery
PROC: 0D9J3ZZ Drainage of Appendix, Percutaneous Approach (ICD-10-PCS; principal; 2021-06-02 10:37)
DX: K35.33 Acute appendicitis with perforation, localized peritonitis, and gangrene, with abscess (principal); I10 Essential (primary) hypertension; Z79.899 Other long term (current) drug therapy

== ENCOUNTER → 2021-06-01 | Outpatient (CLI) | payer BC ==
[~2021-06-01] MED LIST: ADVI200C18 PO; LISI40TA4 PO; VITMTA PO
--- NOTE | 2021-06-01 10:09 | REP ---
INDICATION: GENERALIZED ABDOMINAL PAIN. COMPARISON: None. TECHNIQUE: Supine and erect views the abdomen, frontal view chest. FINDINGS: There is no evidence of free intraperitoneal air. There is mild air and fecal material scattered throughout the colon. A few slightly dilated small bowel loops in left upper quadrant could represent a mild ileus. No abnormal calcifications are seen. The visualized osseous structures are unremarkable. No acute infiltrate is seen in either lung. There is a calcified granuloma in the left costophrenic angle. The heart and mediastinum are unremarkable. IMPRESSION: No free air and no compelling evidence for bowel obstruction. A few slightly dilated small bowel loops in the left upper quadrant may represent a mild ileus. <Electronically signed by Alok Way > 06/01/21 [id number]
[2021-06-01 10:20] LABS: HEMATOCRIT 39.9 % (42.0-52.0); HEMOGLOBIN 13.1 g/dl (13.5-17.5); MEAN CORPUSCULAR HEMOGLOBIN 28.4 pg (27.0-33.0); MEAN CORPUSCULAR HGB CONC 32.8 g/dl (32.0-36.5); MEAN CORPUSCULAR VOLUME 86.4 fl (80.0-96.0); PLATELET COUNT, AUTOMATED 310 10^3/uL (150-450); RED BLOOD COUNT 4.62 10^6/uL (4.30-6.10); WHITE BLOOD COUNT 24.9 10^3/uL (4.0-10.0)
[2021-06-01 10:47] LABS: ALBUMIN 2.8 GM/DL (3.2-5.2); ALT/SGPT 100 U/L (12-78); AMYLASE 36 U/L (25-115); BILIRUBIN,TOTAL 0.7 MG/DL (0.2-1.0); BLOOD UREA NITROGEN 12 MG/DL (7-18); CALCIUM LEVEL 8.8 MG/DL (8.5-10.1); CARBON DIOXIDE LEVEL 29 MEQ/L (21-32); CHLORIDE LEVEL 99 MEQ/L (98-107); CREATININE FOR GFR 1.02 MG/DL (0.70-1.30); GLOMERULAR FILTRATION RATE > 60.0 (>60); GLUCOSE, FASTING 114 MG/DL (70-100); LIPASE 76 U/L (73-393); POTASSIUM SERUM 3.7 MEQ/L (3.5-5.1); SODIUM LEVEL 133 MEQ/L (136-145)
[2021-06-01 10:57] LABS: LYMPHOCYTES 8 % (16-44); MONOCYTES 5 % (0-5); NEUTROPHILS 85 % (28-66)
[2021-06-01 10:58] LABS: PLATELET ESTIMATE NORMAL (NORMAL)
== END ==
LOC: M WUC 09:36
PROVIDERS: ATTEND Physician Assistant
DX: R10.84 Generalized abdominal pain (principal)

== ENCOUNTER → 2021-06-01 | Outpatient (CLI) | payer BC ==
[~2021-06-01] MED LIST changes: +GASTROGRAFIN SOLUTION 30ML (Q9963) As Ordered ONE; +ISOVUE-370 76% 100ML VIAL As Ordered ONE
--- NOTE | 2021-06-01 13:08 | REP ---
INDICATION: GENERALIZED ABD PAIN. COMPARISON: 07/07/2009 CT abdomen only TECHNIQUE: Standard helical technique after the intravenous administration of 100 cc Isovue 370 and oral bowel preparatory contrast administration. FINDINGS: The lung bases are again seen to be clear. There is an incidental calcified granuloma in the left lower lobe. The liver, gallbladder, spleen, pancreas, adrenal glands, and kidneys are within normal limits. The abdominal aorta and para-aortic regions are within normal limits. Seen in the right lower quadrant abutting the cecum there is an 8.7 by 6.7 by 6.6 cm sized air-fluid level with fatty infiltration surrounding it. This appears to be arising from the appendix. There is a small amount of free fluid in the right pericolic gutter. Bone window technique throughout the examination shows the osseous structures to be within normal limits. There is a grade 1 L3 upon L4 spondylolisthesis secondary to bilateral L3 spondylolysis. IMPRESSION: There is a large right lower quadrant abscess which likely represents a perforated than walled-off appendicitis. Critical Findings: Large right lower quadrant abscess consistent with a perforated walled-off appendicitis. The critical information above was relayed directly by me by telephone to Mayo Alarcon on 06/01/2021 at 12:59 pm with readback verification. <Electronically signed by Jai Cagle > 06/01/21 [id number]
== END ==
LOC: M RAD 11:01
PROVIDERS: ATTEND Physician Assistant
DX: R10.84 Generalized abdominal pain (principal)
CPT/HCPCS: 74177; Q9963; Q9967

== ENCOUNTER → 2021-10-06 | Outpatient (CLI) | payer BC ==
[~2021-10-06] MED LIST changes: +AUGM875T28 PO; -GASTROGRAFIN SOLUTION 30ML (Q9963) As Ordered ONE; -ISOVUE-370 76% 100ML VIAL As Ordered ONE; +METR-265 PO
[2021-10-06 10:55] LABS: BASO # 0.1 10^3/uL (0.0-0.2); BASO % 0.8 % (0.0-1.0); EOS # 0.1 10^3/uL (0.0-0.5); EOS % 1.7 % (0.0-3.0); HEMATOCRIT 48.7 % (42.0-52.0); HEMOGLOBIN 16.2 g/dl (13.5-17.5); LYMPH # 2.3 10^3/uL (1.5-5.0); LYMPH % 32.2 % (24.0-44.0); MEAN CORPUSCULAR HEMOGLOBIN 27.9 pg (27.0-33.0); MEAN CORPUSCULAR HGB CONC 33.3 g/dl (32.0-36.5); MEAN CORPUSCULAR VOLUME 83.8 fl (80.0-96.0); MONO # 0.7 10^3/uL (0.0-0.8); MONO % 9.3 % (2.0-8.0); NEUTROPHILS # 3.9 10^3/uL (1.5-8.5); NEUTROPHILS % 54.7 % (36.0-66.0); PLATELET COUNT, AUTOMATED 211 10^3/uL (150-450); RED BLOOD COUNT 5.81 10^6/uL (4.30-6.10); WHITE BLOOD COUNT 7.2 10^3/uL (4.0-10.0)
[2021-10-06 11:21] LABS: HEMOGLOBIN A1c 5.6 %
[2021-10-06 11:37] LABS: ALBUMIN 3.7 GM/DL (3.2-5.2); ALT/SGPT 64 U/L (12-78); BILIRUBIN,TOTAL 0.4 MG/DL (0.2-1.0); BLOOD UREA NITROGEN 16 MG/DL (7-18); CALCIUM LEVEL 9.3 MG/DL (8.5-10.1); CARBON DIOXIDE LEVEL 30 MEQ/L (21-32); CHLORIDE LEVEL 104 MEQ/L (98-107); CHOLESTEROL LEVEL 151 MG/DL (<200); CHOLESTEROL RISK RATIO 3.775 (<5); CREATININE FOR GFR 1.09 MG/DL (0.70-1.30); GLOMERULAR FILTRATION RATE > 60.0 (>60); GLUCOSE, FASTING 108 MG/DL (70-100); HDL CHOLESTEROL 40 MG/DL (>40); LDL CHOLESTEROL 93 MG/DL (<100); NON-HDL-C 111 MG/DL; POTASSIUM SERUM 4.7 MEQ/L (3.5-5.1); SODIUM LEVEL 136 MEQ/L (136-145); TOTAL PROTEIN 6.9 GM/DL (6.4-8.2); TRIGLYCERIDES LEVEL 91 MG/DL (<150)
== END ==
LOC: M PLALAB 08:09
PROVIDERS: ATTEND Nurse Practitioner Family
DX: I10 Essential (primary) hypertension (principal)

== ENCOUNTER 2022-02-24 23:10 | Emergency (ER) | payer BC ==
[~2022-02-24] VITALS: Ht 172.7 cm; Wt 84.1 kg
[2022-02-24 23:18] VITALS: BP 129/63
[2022-02-24] MEDS ORDERED: ACETAMINOPHEN 500 MG TAB PO ONE (23:20)
[2022-02-25 01:59] LABS: RSV AMPLIFICATION NEGATIVE (NEGATIVE)
== END 2022-02-25 02:19 | disposition left against medical advice (07) ==
LOC: M ED 23:10
DX: Z53.21 Procedure and treatment not carried out due to patient leaving prior to being seen by health care provider (principal)

== ENCOUNTER → 2022-02-25 | Outpatient (CLI) | payer BC ==
[~2022-02-25] MED LIST changes: +GASTROGRAFIN SOLUTION 30ML (Q9963) As Ordered ONE; +ISOVUE-370 76% 100ML VIAL As Ordered ONE
== END ==
LOC: M RAD 13:46
PROVIDERS: ATTEND Physician Assistant
DX: K35.80 Unspecified acute appendicitis (principal)
CPT/HCPCS: 74178; Q9963; Q9967

== ENCOUNTER → 2022-02-25 | Outpatient (CLI) | payer BC ==
[~2022-02-25] MED LIST changes: -GASTROGRAFIN SOLUTION 30ML (Q9963) As Ordered ONE; -ISOVUE-370 76% 100ML VIAL As Ordered ONE
[2022-02-25 10:44] LABS: HEMATOCRIT 43.3 % (42.0-52.0); HEMOGLOBIN 14.7 g/dl (13.5-17.5); MEAN CORPUSCULAR HEMOGLOBIN 28.9 pg (27.0-33.0); MEAN CORPUSCULAR HGB CONC 33.9 g/dl (32.0-36.5); MEAN CORPUSCULAR VOLUME 85.2 fl (80.0-96.0); RED BLOOD COUNT 5.08 10^6/uL (4.30-6.10); WHITE BLOOD COUNT 5.6 10^3/uL (4.0-10.0)
[2022-02-25 11:07] LABS: PLATELET COUNT, AUTOMATED 89 10^3/uL (150-450)
[2022-02-25 11:12] LABS: LYMPHOCYTES 7 % (16-44); MONOCYTES 1 % (0-5); NEUTROPHILS 82 % (28-66); PLATELET ESTIMATE DECREASED (NORMAL)
[2022-02-25 11:28] LABS: ALBUMIN 3.4 GM/DL (3.2-5.2); ALT/SGPT 160 U/L (12-78); AMYLASE 42 U/L (25-115); BILIRUBIN,TOTAL 1.7 MG/DL (0.2-1.0); BLOOD UREA NITROGEN 13 MG/DL (7-18); CARBON DIOXIDE LEVEL 25 MEQ/L (21-32); CHLORIDE LEVEL 104 MEQ/L (98-107); GLOMERULAR FILTRATION RATE > 60.0 (>60); GLUCOSE, FASTING 144 MG/DL (70-100); LIPASE 92 U/L (73-393); POTASSIUM SERUM 3.6 MEQ/L (3.5-5.1); SODIUM LEVEL 136 MEQ/L (136-145)
== END ==
LOC: M WUC 08:41
PROVIDERS: ATTEND Physician Assistant
DX: R10.30 Lower abdominal pain, unspecified (principal)

== ENCOUNTER → 2022-03-02 | Outpatient (CLI) | payer BC ==
[~2022-03-02] MED LIST changes: +ACET-910 PO; +AMOX875T2 PO; +DOXY100T27 PO
[2022-03-02 13:09] LABS: BASO # 0.1 10^3/uL (0.0-0.2); BASO % 0.8 % (0.0-1.0); EOS # 0.3 10^3/uL (0.0-0.5); EOS % 1.9 % (0.0-3.0); HEMATOCRIT 42.5 % (42.0-52.0); HEMOGLOBIN 13.9 g/dl (13.5-17.5); LYMPH # 2.4 10^3/uL (1.5-5.0); LYMPH % 18.1 % (24.0-44.0); MEAN CORPUSCULAR HEMOGLOBIN 27.8 pg (27.0-33.0); MEAN CORPUSCULAR HGB CONC 32.7 g/dl (32.0-36.5); MONO # 1.4 10^3/uL (0.0-0.8); MONO % 11.1 % (2.0-8.0); NEUTROPHILS # 8.5 10^3/uL (1.5-8.5); NEUTROPHILS % 65.6 % (36.0-66.0); PLATELET COUNT, AUTOMATED 307 10^3/uL (150-450)
[2022-03-02 13:53] LABS: ALBUMIN 2.7 GM/DL (3.2-5.2); ALT/SGPT 77 U/L (12-78); BILIRUBIN,TOTAL 0.6 MG/DL (0.2-1.0); BLOOD UREA NITROGEN 8 MG/DL (7-18); CALCIUM LEVEL 9.4 MG/DL (8.5-10.1); CARBON DIOXIDE LEVEL 28 MEQ/L (21-32); CHLORIDE LEVEL 101 MEQ/L (98-107); CREATININE FOR GFR 0.98 MG/DL (0.70-1.30); GLOMERULAR FILTRATION RATE > 60.0 (>60); GLUCOSE, FASTING 90 MG/DL (70-100); POTASSIUM SERUM 3.3 MEQ/L (3.5-5.1); SODIUM LEVEL 137 MEQ/L (136-145); TOTAL PROTEIN 7.7 GM/DL (6.4-8.2)
== END ==
LOC: M WUC 09:15
PROVIDERS: ATTEND Physician Assistant
DX: R10.30 Lower abdominal pain, unspecified (principal)

== ENCOUNTER → 2022-03-03 | Outpatient (CLI) | payer BC | LOC: M LABSMTC 09:30 | PROVIDERS: ATTEND Anesthesiology | DX: Z01.818 Encounter for other preprocedural examination (principal); Z11.52 Encounter for screening for COVID-19 ==

== ENCOUNTER → 2022-12-05 | Outpatient (CLI) | payer BC ==
[~2022-12-05] MED LIST changes: +LEVO1TAB39 PO; +OXYC1TAB23 PO
[2022-12-05 14:15] LABS: BASO # 0.1 10^3/uL (0.0-0.2); BASO % 1.5 % (0.0-1.0); EOS # 0.2 10^3/uL (0.0-0.5); EOS % 2.3 % (0.0-3.0); HEMATOCRIT 50.6 % (42.0-52.0); HEMOGLOBIN 16.9 g/dl (13.5-17.5); LYMPH # 2.1 10^3/uL (1.5-5.0); LYMPH % 31.5 % (24.0-44.0); MEAN CORPUSCULAR HEMOGLOBIN 29.1 pg (27.0-33.0); MEAN CORPUSCULAR HGB CONC 33.4 g/dl (32.0-36.5); MEAN CORPUSCULAR VOLUME 87.1 fl (80.0-96.0); MONO # 0.7 10^3/uL (0.0-0.8); MONO % 9.9 % (2.0-8.0); NEUTROPHILS # 3.6 10^3/uL (1.5-8.5); NEUTROPHILS % 54.5 % (36.0-66.0); PLATELET COUNT, AUTOMATED 170 10^3/uL (150-450); RED BLOOD COUNT 5.81 10^6/uL (4.30-6.10); WHITE BLOOD COUNT 6.6 10^3/uL (4.0-10.0)
[2022-12-05 14:33] LABS: ALBUMIN 4.1 G/DL (3.2-5.2); ALKALINE PHOSPHATASE 57 U/L (46-116); ALT/SGPT 47 U/L (7.0-40); AST/SGOT 24 U/L (<34); BILIRUBIN,TOTAL 0.5 MG/DL (0.3-1.2); BLOOD UREA NITROGEN 17 MG/DL (9-23); CARBON DIOXIDE LEVEL 28 MMOL/L (20-31); CHLORIDE LEVEL 105 MMOL/L (98-107); CHOLESTEROL LEVEL 201 MG/DL (<200); CHOLESTEROL RISK RATIO 3.15 (<5); CREATININE FOR GFR 1.08 MG/DL (0.70-1.30); GLOMERULAR FILTRATION RATE > 60.0 (>60); GLUCOSE, FASTING 105 MG/DL (60-100); HDL CHOLESTEROL 63.8 MG/DL (>40); HEMOGLOBIN A1c 5.5 % (4.0-6.0); LDL CHOLESTEROL 111.2 MG/DL (<100); NON-HDL-C 137.2 MG/DL; POTASSIUM SERUM 4.5 MMOL/L (3.5-5.1); SODIUM LEVEL 138 MMOL/L (136-145); TRIGLYCERIDES LEVEL 130 MG/DL (<150)
== END ==
LOC: M PLALAB 09:17
PROVIDERS: ATTEND Nurse Practitioner Family
DX: I10 Essential (primary) hypertension (principal)

== ENCOUNTER → 2024-02-19 | Outpatient (CLI) | payer BC ==
[2024-02-19 12:54] LABS: BASO # 0.1 10^3/uL (0.0-0.2); BASO % 1.1 % (0.0-1.0); EOS # 0.1 10^3/uL (0.0-0.5); EOS % 1.9 % (0.0-3.0); HEMATOCRIT 49.4 % (42.0-52.0); HEMOGLOBIN 16.8 g/dl (13.5-17.5); LYMPH # 1.5 10^3/uL (1.5-5.0); LYMPH % 23.8 % (24.0-44.0); MEAN CORPUSCULAR HEMOGLOBIN 29.2 pg (27.0-33.0); MEAN CORPUSCULAR VOLUME 85.9 fl (80.0-96.0); MONO # 0.8 10^3/uL (0.0-0.8); MONO % 12.8 % (2.0-8.0); NEUTROPHILS # 3.8 10^3/uL (1.5-8.5); NEUTROPHILS % 60.1 % (36.0-66.0); PLATELET COUNT, AUTOMATED 151 10^3/uL (150-450); RED BLOOD COUNT 5.75 10^6/uL (4.30-6.10); WHITE BLOOD COUNT 6.4 10^3/uL (4.0-10.0)
[2024-02-19 13:24] LABS: THYROID STIMULATING HORMONE 0.928 uIU/ML (0.55-4.78)
[2024-02-19 13:25] LABS: FREE T4 1.04 NG/DL (0.89-1.76)
[2024-02-19 13:32] LABS: ALBUMIN 4.1 G/DL (3.2-5.2); ALKALINE PHOSPHATASE 55 U/L (46-116); ALT/SGPT 41 U/L (7.0-40); AST/SGOT 20 U/L (<34); BILIRUBIN,TOTAL 0.6 MG/DL (0.3-1.2); BLOOD UREA NITROGEN 15 MG/DL (9-23); CALCIUM LEVEL 9.6 MG/DL (8.5-10.1); CARBON DIOXIDE LEVEL 26 MMOL/L (20-31); CHLORIDE LEVEL 106 MMOL/L (98-107); CHOLESTEROL LEVEL 197 MG/DL (<200); CHOLESTEROL RISK RATIO 3.78 (<5); CREATININE FOR GFR 1.02 MG/DL (0.70-1.30); GLOMERULAR FILTRATION RATE > 60.0 (>60); GLUCOSE, FASTING 113 MG/DL (60-100); HDL CHOLESTEROL 52.1 MG/DL (>40); LDL CHOLESTEROL 118.7 MG/DL (<100); NON-HDL-C 144.9 MG/DL; POTASSIUM SERUM 4.5 MMOL/L (3.5-5.1); SODIUM LEVEL 138 MMOL/L (136-145); TOTAL PROTEIN 6.8 G/DL (5.7-8.2); TRIGLYCERIDES LEVEL 131 MG/DL (<150)
[2024-02-19 14:31] LABS: HEMOGLOBIN A1c 5.3 % (4.0-6.0)
== END ==
LOC: M PLALAB 08:24
PROVIDERS: ATTEND Nurse Practitioner Family
DX: Z00.00 Encounter for general adult medical examination without abnormal findings (principal); E78.5 Hyperlipidemia, unspecified; R73.01 Impaired fasting glucose; R53.83 Other fatigue

== ENCOUNTER → 2024-06-07 | Outpatient (CLI) | payer BC ==
[2024-06-07 11:10] LABS: C REACTIVE PROTEIN QUANTITATIV < 0.40 MG/DL (<1.0)
[2024-06-07 11:11] LABS: BASO # 0.1 10^3/uL (0.0-0.2); BASO % 1.3 % (0.0-1.0); EOS # 0.2 10^3/uL (0.0-0.5); EOS % 3.3 % (0.0-3.0); HEMATOCRIT 48.6 % (42.0-52.0); HEMOGLOBIN 16.1 g/dl (13.5-17.5); LYMPH # 1.9 10^3/uL (1.5-5.0); LYMPH % 35.7 % (24.0-44.0); MEAN CORPUSCULAR HEMOGLOBIN 28.8 pg (27.0-33.0); MEAN CORPUSCULAR HGB CONC 33.1 g/dl (32.0-36.5); MEAN CORPUSCULAR VOLUME 86.8 fl (80.0-96.0); MONO # 0.5 10^3/uL (0.0-0.8); MONO % 10.2 % (2.0-8.0); NEUTROPHILS # 2.6 10^3/uL (1.5-8.5); NEUTROPHILS % 49.3 % (36.0-66.0); PLATELET COUNT, AUTOMATED 160 10^3/uL (150-450); WHITE BLOOD COUNT 5.2 10^3/uL (4.0-10.0)
[2024-06-07 11:12] LABS: ALKALINE PHOSPHATASE 55 U/L (40-129); ALT/SGPT 44 U/L (7.0-40); AST/SGOT 22 U/L (<34); BILIRUBIN,TOTAL 0.6 MG/DL (0.3-1.2); BLOOD UREA NITROGEN 17 MG/DL (9-23); CALCIUM LEVEL 9.9 MG/DL (8.5-10.1); CARBON DIOXIDE LEVEL 28 MMOL/L (20-31); CHLORIDE LEVEL 106 MMOL/L (98-107); CREATININE FOR GFR 1.02 MG/DL (0.70-1.30); GLOMERULAR FILTRATION RATE > 60.0 (>60); GLUCOSE, FASTING 148 MG/DL (60-100); POTASSIUM SERUM 4.5 MMOL/L (3.5-5.1); SODIUM LEVEL 139 MMOL/L (136-145)
[2024-06-07 11:15] LABS: THYROID STIMULATING HORMONE 0.581 uIU/ML (0.55-4.78)
== END ==
LOC: M WUC 08:13
PROVIDERS: ATTEND Nurse Practitioner Family
DX: I10 Essential (primary) hypertension (principal); R53.83 Other fatigue; M25.50 Pain in unspecified joint

== ENCOUNTER 2024-08-19 09:06 | Day surgery (SDC) | payer BC ==
[~2024-08-19] VITALS: Ht 175.3 cm; Wt 86.2 kg
[2024-08-19 11:25] VITALS: BP 139/93; O2SAT 97
== END 2024-08-19 11:28 | disposition home or self-care (01) ==
LOC: M OPP 09:06
PROVIDERS: ATTEND Internal Medicine Gastroenterology
DX: Z12.11 Encounter for screening for malignant neoplasm of colon (principal); K57.30 Diverticulosis of large intestine without perforation or abscess without bleeding; K64.8 Other hemorrhoids; Z98.0 Intestinal bypass and anastomosis status; Z79.899 Other long term (current) drug therapy

== ENCOUNTER → 2024-11-12 | Outpatient (CLI) | payer BC ==
[2024-11-12 12:59] LABS: BASO # 0.1 10^3/uL (0.0-0.2); BASO % 1.3 % (0.0-1.0); EOS # 0.1 10^3/uL (0.0-0.5); EOS % 2.2 % (0.0-3.0); HEMATOCRIT 52.4 % (42.0-52.0); HEMOGLOBIN 17.4 g/dl (13.5-17.5); LYMPH # 2.5 10^3/uL (1.5-5.0); LYMPH % 40.5 % (24.0-44.0); MEAN CORPUSCULAR HEMOGLOBIN 29.1 pg (27.0-33.0); MEAN CORPUSCULAR HGB CONC 33.2 g/dl (32.0-36.5); MEAN CORPUSCULAR VOLUME 87.6 fl (80.0-96.0); MONO # 0.6 10^3/uL (0.0-0.8); MONO % 10.2 % (2.0-8.0); NEUTROPHILS # 2.8 10^3/uL (1.5-8.5); NEUTROPHILS % 45.2 % (36.0-66.0); PLATELET COUNT, AUTOMATED 173 10^3/uL (150-450); RED BLOOD COUNT 5.98 10^6/uL (4.30-6.10); WHITE BLOOD COUNT 6.3 10^3/uL (4.0-10.0)
[2024-11-12 13:04] LABS: ALBUMIN 4.3 G/DL (3.2-5.2); BILIRUBIN,TOTAL 0.8 MG/DL (0.3-1.2); CHOLESTEROL RISK RATIO 3.63 (<5); CREATININE FOR GFR 1.04 MG/DL (0.70-1.30); GLOMERULAR FILTRATION RATE 89.1 (>60); LDL CHOLESTEROL 137.4 MG/DL (<100); POTASSIUM SERUM 4.8 MMOL/L (3.5-5.1); TOTAL PROTEIN 7.3 G/DL (5.7-8.2)
[2024-11-12 13:13] LABS: HEMOGLOBIN A1c 5.3 % (4.0-6.0)
== END ==
LOC: M WUC 08:00
PROVIDERS: ATTEND Nurse Practitioner Family
DX: R73.01 Impaired fasting glucose (principal); E78.5 Hyperlipidemia, unspecified; I10 Essential (primary) hypertension

== ENCOUNTER → 2024-11-18 | Outpatient (CLI) | payer BC ==
[2024-11-18 11:21] LABS: APPEARANCE, URINE CLEAR (CLEAR); BACTERIA, URINE AUTO NEGATIVE (NEGATIVE); BILIRUBIN, URINE AUTO NEGATIVE (NEGATIVE); BLOOD, URINE BLOOD NEGATIVE (NEGATIVE); COLOR, URINE YELLOW (YELLOW); GLUCOSE, URINE (UA) AUTO NEGATIVE (NEGATIVE); KETONE, URINE AUTO NEGATIVE (NEGATIVE); LEUKOCYTE ESTERASE, URINE AUTO NEGATIVE (NEGATIVE); MUCUS, URINE SMALL (NEGATIVE); NITRITE, URINE AUTO NEGATIVE (NEGATIVE); PROTEIN, URINE AUTO NEGATIVE (NEGATIVE); RBC, URINE AUTO 0 /HPF (0-3); SPECIFIC GRAVITY URINE AUTO 1.018 (1.002-1.035); SQUAMOUS EPITHELIAL CELL UR AU 0 /HPF (0-6); UROBILINOGEN, URINE AUTO 0.2 mg/dL (0.0-2.0); WBC, URINE AUTO 0 /HPF (0-3)
== END ==
LOC: M PLALAB 09:15
PROVIDERS: ATTEND Nurse Practitioner Family
DX: M54.9 Dorsalgia, unspecified (principal)